=== PATIENT | male | born 1950 | race Two or more races ===

== ENCOUNTER 2022-06-18 05:46 | Day surgery (SDC) | payer OTHER | END 2022-06-18 10:05 | disposition home or self-care (01) | LOC: AMB-ENDOS 05:46 → CIR.AMB 13:15 | PROVIDERS: ATTEND Colon & Rectal Surgery | DX: D12.4 Benign neoplasm of descending colon (principal); D12.5 Benign neoplasm of sigmoid colon; R19.5 Other fecal abnormalities; K64.8 Other hemorrhoids; Z20.822 Contact with and (suspected) exposure to COVID-19; I10 Essential (primary) hypertension ==